=== PATIENT | female | born 1990 | race Caucasian/White ===

== ENCOUNTER 2022-10-26 02:12 | Observation (INO) | payer OTHER, SELFPAY ==
[2022-10-26] VITALS (15 sets, daily range): BP systolic 133–160; BP diastolic 80–111; PULSE 77–103; RESP 16–21; TEMP 36.3–37.1; O2SAT 97–100; BMI 41.6
--- NOTE | ~2022-10-26 | CT_ITS ---
EXAMINATION: CT abdomen pelvis w con DATE: 10/26/2022 03:46 INDICATION: Left lower quadrant abdominal pain, nausea TECHNIQUE: Computed tomography (CT) of the abdomen and pelvis was performed with 100 CC Omnipaque 350 intravenous contrast. Automated exposure control and iterative reconstruction technique were employe d. Exam dose: 1590.58 mGy-cm total exam DLP. COMPARISON: None. FINDINGS: The lung bases are clear. No pericardial or pleural effusion. Heart size is within normal r maya. Small sliding hiatal hernia. No hepatic space-occupying mass lesion. Status post cholecystectomy. No bile duct or pancreatic duct dilatation. No pancreatic mass lesion or calcification. There is patchy enhancement of the spleen, not likely of clinical significance. No splenomegaly is no nessa. Normal morphology of the adrenal glands. No renal mass lesion is noted. There is asymmetric thickening of the wall of the left renal pelvis an d left ureter and left periureteral stranding, suggesting the left pyelonephritis. There is moderate thickness of the urinary bladder wall with mild pericystic fat stranding which may be due to cystitis . No urinary tract calculus is noted. Normal caliber of the abdominal aorta. No intraperitoneal or retroperitoneal or pelvic mass lesion or adenopathy or ascites. The uterus and ovaries are unremarkable. Normal appendix. No bowel obstruction, bowel wall thickening, pneumatosis or intraperitoneal free air . Small fat-containing umbilical hernia. Included skeletal structures are unremarkable. IMPRESSION: Asymmetric soft tissue thickening of left renal pelvis, left ureter, periureteral strand ing and moderate thickness of the bladder wall with mild pericystic stranding, suggesting cystitis an d left pyelonephritis Status post cholecystectomy Nonspecific patchy splenic enhancement, which may be a normal variant. Reviewed, dictated and finalized at [facility]. Reviewed, dictated and finalized at [facility]. ICER IMPRESSION: Asymmetric soft tissue thickening of left renal pelvis, left urete r, periureteral stranding and moderate thickness of the bladder wall with mild pericystic stranding, suggesting cystitis and left pyelonephritis Status post cholecystectomy Nonspecific patchy splenic enhancement, which may be a normal variant.
--- NOTE | 2022-10-26 02:59 | ED.ABDPAIN ---
HPI - Abdominal Pain General Chief Complaint: Abdominal Pain Stated Complaint: abdominal pain Time Seen by Provider: 10/26/22 02:28 History of Present Illness HPI narrative: Patient is a 31-year-old female presenting with abdominal pain. Patient states that for the last 3 days she has had left lower quadrant pain that now radiates into her back. Has been associated with diarrhea and some nausea. She also complains of increased urinary frequency and dysuria. States that earlier today the pain was so bad that she was laying on the ground crying so she called her to bring her in. Patient states that she took Tylenol earlier and her pain is currently improved. She states that she has never had pain like this in the past. She denies fevers, headache, chest pain, shortness of breath, cough, vomiting, rashes, vaginal bleeding or discharge. Related Data Home Medications Medication Instructions Recorded Confirmed Ashley () See Rx Instructions .Route .COMPLEX 10/26/22 10/26/22 venlafaxine 75 mg tablet 75 mg PO DAILY 10/26/22 10/26/22 Allergies Allergy/AdvReac Type Severity Reaction Status Date / Time No Known Allergies Allergy Verified 10/26/22 02:18 Review of Systems Review of Systems: All systems reviewed & are unremarkable except as noted in HPI and below PMFSH Past Medical History Medical History Anxiety and depression Surgical History Surgical History History of cholecystectomy [place] teeth extracted Social History Social History Social History: patient lives in a home with her spouse and child along with 2 dogs does not have a history of any nicotine product or drug abuse. Does can consume alcohol occasionally. History of 1 live . Smoking status: Never smoker Second hand tobacco smoke exposure: No Alcohol intake: current Drinks per week: 1 Substance use: never Lack of Transportation: No Lack of Food: Never True Current Housing: I Have Housing Concerned About Future Housing: No Difficulty Paying Gas/Electric Bills: No Difficulty Paying for Meds: No Currently Unemployed: No Education: High School Diploma/GED Difficulty w/ Childcare or Family Care: No Spiritual care concerns: No Exam Narrative: GENERAL: Well-appearing, well-nourished, and in no acute distress. HEAD: Normocephalic, atraumatic. EYES: PERRLA and EOMI. ENT: Nares clear, no rhinorrhea or epistaxis. Mucous membranes moist. NECK: Supple. CHEST: Clear to auscultation. No respiratory distress. HEART: Regular rate and rhythm. No murmur heard. Normal peripheral pulses. ABDOMEN: Soft, tender to palpation in left lower quadrant, nondistended, normal active bowel sounds. EXTREMITIES: Normal range of motion. No edema. SKIN: Warm, dry, no rash. NEURO: No focal deficits. Alert and oriented x3. PSYCH: Normal mood and affect. Course Course Emergency Course: Patient is a 31-year-old female presenting with abdominal pain. Patient is slightly tachycardic and hypertensive. Exam remarkable for left lower quadrant tenderness. CT abdomen pelvis is concerning for pyelonephritis. UA is consistent with infection. Patient covered with Rocephin and IV fluids are ongoing. Patient admitted to medicine for further management. Vital Signs Vital signs: Vital Signs Temperature 97.3 F L 10/26/22 02:14 Pulse Rate 103 H 10/26/22 02:14 Respiratory Rate 16 10/26/22 02:14 Blood Pressure 151/107 H 10/26/22 02:14 Pulse Oximetry 100 10/26/22 02:14 Oxygen Delivery Room Air 10/26/22 02:14 Temperature 97.9 F 10/27/22 14:00 Pulse Rate 92 10/27/22 14:00 Respiratory Rate 24 H 10/27/22 14:00 Blood Pressure 142/81 H 10/27/22 14:00 Pulse Oximetry 97 10/27/22 14:00 Oxygen Delivery Room Air 10/26/22 20:00 [facility] -
[2022-10-26] MEDS: SODIUM CHLORIDE 0.9% IV 1,000 ML 999 ML IV CONT (03:12)
[2022-10-26 03:14] LABS: Appearance Urine Cloudy (Clear); Basophils Absolute Auto 0.1 K/mm3 (0.0-0.1); Basophils Percent Auto 0.5 % (0.2-1.2); Bilirubin Urine Negative (Negative); Blood Urine 3+ (Negative); Color Urine Yellow (Yellow); Eosinophils Absolute Auto 0.1 K/mm3 (0-0.3); Eosinophils Percent Auto 0.8 % (0-4.4); Glucose Urine UA Negative (Negative); Hematocrit 40.2 % (37.0-47.0); Immature Granulocyte Absolute 0.06 K/mm3 (0.00-0.031); Immature Granulocyte Percent A 0.4 % (0-0.5); Ketones Urine Negative (Negative); Leukocyte Esterase Ur 3+ LEU/UL (Negative); Lymphocytes Absolute Auto 2.42 K/mm3 (0.9-3.2); Lymphocytes Percent Auto 14.6 % (18.3-44.2); Mean Corpuscular HGB Conc 32.3 g/dl (32-36); Mean Corpuscular Hemoglobin 28.1 pg (26-34); Mean Corpuscular Volume 86.8 fl (80-100); Mean Platelet Volume 9.5 fl (7.4-10.4); Monocytes Absolute Auto 1.4 K/mm3 (0.1-0.6); Monocytes Percent Auto 8.3 % (2.6-8.5); Neutrophils Absolute Auto 12.5 K/mm3 (1.3-6.7); Neutrophils Percent Auto 75.4 % (45.5-73.1); Nitrate Urine Positive (Negative); Platelet Count Result 421 k/mm3 (150-375); Protein Urine 2+ mg/dL (Negative); Red Blood Count 4.63 M/mm3 (4.2-5.4); Specific Grav Ur 1.025 (1.001-1.035); Urobilinogen Urine 0.2 mg/dL (<2.0); White Blood Count 16.5 K/mm3 (4.5-10.0)
[2022-10-26 03:23] LABS: Alanine Aminotransferase 28 U/L (6-35); Albumin Level 4.2 g/dL (3.5-5.1); Alkaline Phosphatase 93 U/L (38-126); Anion Gap 9 mmol/L (8-16); Aspartate Amino Transferase 24 U/L (14-36); Bacteria Urine Trace /hpf; Bilirubin,Total 0.2 mg/dL (0.2-1.3); Blood Urea Nitrogen 13 mg/dL (7-17); Calcium 9.7 mg/dL (8.4-10.2); Carbon Dioxide 25 mmol/L (22-30); Chloride 104 mmol/L (98-107); Estimated CRCL calculation 145 ml/min; Estimated Glomerular Filt Rate > 60; Glucose 96 mg/dL (65-110); Lipase 65 U/L (23-300); Mucus Urine Few /lpf; Sodium 138 mmol/L (137-145); Squamous Epithelial Cell Urine Occasional /hpf (Few); WBC Clumps Urine Present /HPF; WBC Urine >75 /hpf
[2022-10-26 03:24] LABS: Add Urine Microscopic? YES
--- NOTE | 2022-10-26 03:35 | PC.NURSE ---
Patient taken to CT via stretcher.
--- NOTE | 2022-10-26 04:42 | PC.NURSE ---
faxed CT report has been received.
[2022-10-26] MEDS: KETOROLAC 15 MG/ML VIAL (*BKC) IV PUSH (05:24)
--- NOTE | 2022-10-26 06:36 | ADMGEN ---
This patient, Susan Arias Bojorquez, was admitted to [facility] Surg Room 320-01 at 0621. Patient/family oriented to hospital policies and general routines including ID bracelet, bed and alarms, visiting hours, pain management, procedures, bathroom and other care routines, personal items, smoking policy, room service/diet, and visiting hours. Information on how to activate the Rapid Response Team has been discussed. Patient/Family are encouraged to report perceived risks to care and to ask questions if they do not understand what they are told or what they should do.
[2022-10-26] MEDS: KETOROLAC 30 MG/ML VIAL (*BKC) IV PUSH (10:36)
--- NOTE | 2022-10-26 14:46 | PM.IMHP ---
H&P: HPI History of Present Illness Date/Time: 10/26/22 14:46 Chief Complaint: Dysuria, flank pain Narrative: 31-year-old with a history of anxiety depression presents to the ER due to worsening left flank pain associated dysuria. Patient states that she had noticed some cramping on her left flank starting on 10/23/2022 and also was having urinary frequency. Patient noticed that she was starting to urinate less than last throughout the day. She denies fever, right flank pain, and blood in her urine. Patient does have a history of UTIs in stated that when she had 1st started getting symptoms she had started using vaginal cleansing wipes, cranberry juice, azo, increased water intake, and Tylenol with no relief. in the early hours of 10/26/2022 patient stated that she had had severe cramping in her flank and that is what brought her to the ER. patient's urine revealed 11-20 rbc's, 3+ leukocyte esterase, positive nitrate, and greater than 75 white blood cells. Patient denies fever. Vital signs revealed tachycardia. Patient was admitted into observation under the diagnosis of pyelonephritis. Review of Systems Review of Systems: All systems reviewed & are unremarkable except as noted in HPI and below PMFSH Past Medical History Medical History Anxiety and depression Surgical History Surgical History History of cholecystectomy [place] teeth extracted Social History Social History Social History: patient lives in a home with her spouse and child along with 2 dogs does not have a history of any nicotine product or drug abuse. Does can consume alcohol occasionally. History of 1 live . Smoking status: Never smoker Second hand tobacco smoke exposure: No Alcohol intake: current Drinks per week: 1 Substance use: never Lack of Transportation: No Lack of Food: Never True Current Housing: I Have Housing Concerned About Future Housing: No Difficulty Paying Gas/Electric Bills: No Difficulty Paying for Meds: No Currently Unemployed: No Education: High School Diploma/GED Difficulty w/ Childcare or Family Care: No Spiritual care concerns: No Meds Home Medications and Allergies Home Medications Medication Instructions Recorded Confirmed Type [place] (28) See Rx Instructions .Route .COMPLEX 10/26/22 10/26/22 History venlafaxine 75 mg tablet 75 mg PO DAILY 10/26/22 10/26/22 History Allergies Allergy/AdvReac Type Severity Reaction Status Date / Time No Known Allergies Allergy Verified 10/26/22 02:18 Vital Signs Vital Signs - 24 hr 10/26/22 02:14 10/26/22 02:27 10/26/22 02:32 Temperature 97.3 F L Pulse Rate 103 H Respiratory Rate 16 Blood Pressure 151/107 H 160/105 H 156/99 H Pulse Oximetry 100 97 97 Oxygen Delivery Room Air 10/26/22 03:19 10/26/22 03:31 10/26/22 03:54 Temperature Pulse Rate Respiratory Rate Blood Pressure 134/98 H Pulse Oximetry 98 100 100 Oxygen Delivery 10/26/22 04:20 10/26/22 05:24 10/26/22 05:25 Temperature Pulse Rate Respiratory Rate 17 Blood Pressure 156/111 H Pulse Oximetry 100 100 100 Oxygen Delivery 10/26/22 05:30 10/26/22 05:45 10/26/22 06:00 Temperature 98.7 F Pulse Rate 89 Respiratory Rate 17 Blood Pressure Pulse Oximetry 100 100 100 Oxygen Delivery 10/26/22 06:21 10/26/22 10:36 10/26/22 14:00 Temperature 97.5 F L 97.3 F L Pulse Rate 88 101 H Respiratory Rate 21 H 20 Blood Pressure 135/84 133/80 Pulse Oximetry 100 97 Oxygen Delivery Room Air Exam Narrative: GENERAL: Comfortable, no acute distress HENMT: moist mucous membranes EYES: EOM intact b/l NECK: no lymphadenopathy RESPIRATORY: clear to auscultation CARDIO: RRR BACK: left CVA tenderness GI: soft, nontender, b
[2022-10-26] MEDS: ACETAMINOPHEN 325 MG TABLET 650 MG PO ×2 (18:02→23:08)
[2022-10-26] MEDS: VENLAFAXINE HCL XR 75 MG CAP.ER.24H PO (23:36)
[2022-10-27 06:00] VITALS: BP 148/86; PULSE 81; RESP 16; TEMP 36.5; O2SAT 98
[2022-10-27] MEDS: KETOROLAC 30 MG/ML VIAL (*BKC) IV PUSH (06:19)
[2022-10-27 07:30] LABS: Estimated CRCL calculation 129 ml/min; Estimated Glomerular Filt Rate > 60
[2022-10-27 09:26] LABS: Anion Gap 9 mmol/L (8-16); Blood Urea Nitrogen 8 mg/dL (7-17); Calcium 8.4 mg/dL (8.4-10.2); Carbon Dioxide 26 mmol/L (22-30); Chloride 107 mmol/L (98-107); Estimated CRCL calculation 129 ml/min; Estimated Glomerular Filt Rate > 60; Glucose 92 mg/dL (65-110); Potassium 3.9 mmol/L (3.4-5.0); Sodium 142 mmol/L (137-145)
[2022-10-27 10:01] LABS: Hematocrit 36.5 % (37.0-47.0); Hemoglobin 11.8 g/dL (12.0-15.0); Mean Corpuscular HGB Conc 32.3 g/dl (32-36); Mean Corpuscular Hemoglobin 27.5 pg (26-34); Mean Corpuscular Volume 85.1 fl (80-100); Mean Platelet Volume 9.5 fl (7.4-10.4); Platelet Count Result 358 k/mm3 (150-375); Red Blood Count 4.29 M/mm3 (4.2-5.4); Red Cell Distribution Width 13.2 % (11.5-14.5); White Blood Count 9.8 K/mm3 (4.5-10.0)
[2022-10-27 14:00] VITALS: BP 142/81; PULSE 92; RESP 24; TEMP 36.6; O2SAT 97
--- NOTE | 2022-10-27 14:28 | PM.DS ---
DS: Admitting Diagnosis Discharge Date 10/27/2022 Admitting Diagnosis pyelonephritis DS: Discharge Diagnosis Discharge Diagnosis (1) Pyelonephritis: Code(s): N12 - Tubulo-interstitial nephritis, not specified as acute or chronic Status: Acute DS: Summary Hospital Course Reason for hospitalization: pyelonephritis Hospital Course: 31-year-old female presented to the ED on 10/26/2022 with left-sided abdominal/ flank pain. Patient stated that she had noticed this pain on 10/23/2022 along with urinary frequency and incomplete bladder emptying. Patient had tried OTC cleansing wipes, cranberry juice, azo, increase water intake and Tylenol without any symptom relief. Patient decided to go to the ER once the left flank pain had become too severe. patient's urine revealed 11-20 rbc's, 3+ leukocyte esterase, positive nitrate, and greater than 75 white blood cells. Patient had not experienced any fever. Vital signs did not reveal any tachycardia or hypotension. Patient was started on Zosyn. Urine culture pending and blood culture no growth to date. Patient will be contacted if necessary pending results of culture. Patient was given Toradol for flank pain. Once patient was started on antibiotics urinary symptoms such is dysuria, frequency, and incomplete emptying resolved. Patient is feeling much better today and agrees with discharged. Status at Discharge Functional status at discharge: independent ambulation Overall status at discharge: patient is progressing back to baseline Time Spent with Patient Time attestation: Total time spent providing and/or coordinating discharge services: Exam Narrative: GENERAL: Comfortable, no acute distress HENMT: moist mucous membranes EYES: EOM intact b/l NECK: no lymphadenopathy RESPIRATORY: clear to auscultation CARDIO: RRR BACK: left CVA tenderness GI: soft, nontender, bowel sounds present SKIN: no rashes EXTREMITIES: no edema, redness or tenderness DS: Data Data Completed and Pending Labs on day of discharge: Labs from last 24 hours 10/27/22 10/27/22 10/27/22 06:53 06:53 06:53 WBC 9.8 RBC 4.29 Hgb 11.8 L Hct 36.5 L MCV 85.1 MCH 27.5 MCHC 32.3 RDW 13.2 Plt Count 358 MPV 9.5 Sodium 142 Potassium 3.9 Chloride 107 Carbon Dioxide 26 Anion Gap 9 BUN 8 D Creatinine 0.80 0.80 Estim Creat Clear Calc 129 129 Estimated GFR > 60 > 60 Glucose 92 Calcium 8.4 Preliminary micro results at discharge 10/26/22 05:40 Blood Culture - Preliminary Blood 10/26/22 05:40 Blood Culture - Preliminary Blood Discharge Plan Discharge Attending physician on discharge: Mathew Dominguez Discharging Clinician: Debra Alexander Patient Disposition: Home, Self-Care Activity: as tolerated Diet: as tolerated Discharge Instructions: Discharge disposition: Take medications as prescribed Caution taking antibiotic while on control. Advise using additional contraception throughout antibiotic course. Eat well-balanced meals and stay hydrated Advise use of cotton underwear and unscented products to be used on or near vaginal area Avoid social areas, you wear a mask when in social settings Encouraged to continue with yearly vaccinations Return to the emergency department if he developed sudden shortness of breath, chest pain, nausea, vomiting, upset stomach or intractable diarrhea Return to the emergency department if you develop fever greater than 100.4 Follow-up with the primary care physician within 1-2 weeks Thank you for [facility] for your healthcare needs Patient Instructions: Antibiotic Form Patient Language: [place] Stand Alone Forms: General Discharge Information Follow-up/Referrals: Jean,MD Tracey [Primary Care Provider] - Discharge Medications: New levofloxacin 750 mg tablet 750 mg PO DAILY Qty: 5 0RF Continued angy
--- NOTE | 2022-11-03 10:30 | PC.NURSE ---
Blood cx are negative. Urine cx results sent to JAQUAN Mata
--- NOTE | 2022-11-03 11:24 | PC.NURSE ---
Final for urine cx is E. coli. Patient dc on Levofloxacin which has intermediate coverage. Spoke with JAQUAN Mata. She ordered Cefdinir 300mg po every 12 hours for 5 days. Script called into [facility] in [place]. PA called pt with new order.
== END 2022-10-27 15:40 | disposition home or self-care (01) ==
LOC: ANHED 06:18 → ANH3MEDSUR 17:05
PROVIDERS: Internal Medicine Critical Care Medicine; Admitting Provider Internal Medicine; Emergency Provider Emergency Medicine; PCP Family Medicine; Visit Provider Internal Medicine
DX: N12 Tubulo-interstitial nephritis, not specified as acute or chronic (principal); N39.0 Urinary tract infection, site not specified; B96.29 Other Escherichia coli [E. coli] as the cause of diseases classified elsewhere; F41.9 Anxiety disorder, unspecified; F32.A Depression, unspecified; F10.90 Alcohol use, unspecified, uncomplicated; Z90.49 Acquired absence of other specified parts of digestive tract; Z79.899 Other long term (current) drug therapy
CPT/HCPCS: 36415; 74177; 80048; 80053; 81001; 81025; 82565; 83690; 85025; 85027; 87040; 87077; 87086; 87186; 96361; 96365; 96366; 96367; 96372; 96375; 96376; 99285; A9270; G0378; J0696; J1885; J2543; J3370; J7030; Q9967

== ENCOUNTER 2024-01-16 00:04 | Emergency (ER) | payer OTHER, SELFPAY ==
[2024-01-16] VITALS (14 sets, daily range): BP systolic 104–159; BP diastolic 72–115; PULSE 95–140; RESP 15–45; TEMP 36.6–37.6; O2SAT 92–100
--- NOTE | ~2024-01-16 | XR_ITS ---
EXAMINATION: XR chest 1V portable DATE: 01/16/2024 09:19 INDICATION: Sepsis TECHNIQUE: frontal view of the chest was obtained. COMPARISON: None FINDINGS: The lungs are clear with no focal airspace opacities, pulmonary edema, pleural effusion or pneumothor ax. The cardiomediastinal silhouette is normal. Visualized bones and soft tissues are unremarkable. IMPRESSION: 1. No acute cardiopulmonary disease. Reviewed, dictated and finalized at [facility]. ING MACHINE OPERATOR
--- NOTE | ~2024-01-16 | CT_ITS ---
EXAMINATION: CT brain wo con, CT soft tissue neck w con DATE: 01/16/2024 09:10 INDICATION: Mastoiditis with right ear pressure and right neck pain. TECHNIQUE: 1. Computed tomography (CT) of the head was performed without intravenous contrast. Sagittal and juan nal reconstructions were performed. The mA was adjusted according to patient size. Iterative reconstr uction technique was employed. The dose-length product was 605.33 (accession [id number]), 546.91 (accession [id number]) mGy-cm. 2. CT of the soft tissue neck was obtained with 100 mL Omnipaque-350 intravenous contrast. Sagittal a nd coronal reconstructions were performed. Automated exposure control and iterative reconstruction te chnique were employed. The dose-length product was 546.91 mGy-cm. COMPARISON: None FINDINGS: Head: No acute intracranial hemorrhage, acute infarction or abnormal extra axial fluid collection. Ventricl es are normal and symmetric. No mass/mass effect. The orbits, paranasal sinuses and left mastoid air cells are normal. Right otomastoiditis effusion with fluid filling the majority of the right mastoid air cells as well as in the dependent aspect of the middle ear cavity including along the ossicular c bj. No evident osseous erosion/dehiscence. neck: Submandibular and parotid glands are symmetric. Thyroid gland is unremarkable. There are relatively s ymmetric scattered normal-sized lymph nodes in the neck, no lymphadenopathy. No masses identified. T he vasculature is patent and normal in caliber. Airway is unremarkable. Superior mediastinum is unrem arkable. Lung apices are normal. Cervical spine is unremarkable. IMPRESSION: 1. Right otomastoiditis effusion. No evident osseous erosions/dehiscence. 2. Normal brain. No acute intracranial process. Reviewed, dictated and finalized at location [facility]. STRIAL TRAINER IMPRESSION: 1. Right otomastoiditis effusion. No evident osseous erosions/dehiscence. 2. Normal brain. No acute intracranial process.
--- NOTE | 2024-01-16 07:03 | ECG_ITS ---
Measurements Intervals [place] Rate: 131 P: 55 MA: 120 QRS: 28 QRSD: 94 T: 16 QT: 333 QTc: 493 Interpretive Statements SINUS TACHYCARDIA NONSPECIFIC T-WAVE ABNORMALITY BORDERLINE ECG NO PREVIOUS ECG AVAILABLE FOR COMPARISON Electronically Signed On 01-16-2024 8:35:36 ASSISTANT PRESS OPERATOR OFFSET by Khai Infante M.D.
--- NOTE | 2024-01-16 07:53 | ED.EAR ---
HPI - Ear Problem General Chief complaint: Ear Stated complaint: Pressure in right ear, throbbing Time Seen by Provider: 01/16/24 07:05 History of Present Illness HPI Narrative: Patient is a 33-year-old female who presents to the emergency department this morning complaining of right ear pain for the past few days. Patient states that she had some antibiotics left over at home, some old your drops which she used and believes that may have worsened her ear pain. Patient admits that she has had some ear discharges well and is complaining of pain around her entire ear which radiates to the area behind her ear and down her right neck. Denies any fevers or chills at home. Patient is currently denying any nausea or vomiting, any abdominal pain, dysuria, hematuria, constipation, diarrhea, melena, hematochezia, chest pain shortness of breath. There are no other modifying, alleviating, or precipitating factors at this time. Related Data Home Medications Medication Instructions Recorded Confirmed Ashley (28) See Rx Instructions .Route .COMPLEX 10/26/22 10/26/22 venlafaxine 75 mg tablet 75 mg PO DAILY 10/26/22 10/26/22 Allergies Allergy/AdvReac Type Severity Reaction Status Date / Time No Known Allergies Allergy Verified 01/16/24 10:26 Review of Systems Review of Systems: All systems are reviewed and are negative unless stated otherwise in the HPI. [facility] Past Medical History Medical History Anxiety and depression Surgical History Surgical History History of cholecystectomy [place] teeth extracted Social History Social History Social History: patient lives in a home with her spouse and child along with 2 dogs does not have a history of any nicotine product or drug abuse. Does can consume alcohol occasionally. History of 1 live . Smoking status: Never smoker Second hand tobacco smoke exposure: No Alcohol intake: current Drinks per week: 1 Substance use: never Lack of Transportation: No Lack of Food: Never True Current Housing: I Have Housing Concerned About Future Housing: No Difficulty Paying Gas/Electric Bills: No Difficulty Paying for Meds: No Currently Unemployed: No Education: High School Diploma/GED Difficulty w/ Childcare or Family Care: No Spiritual care concerns: No Exam Narrative: General: Alert, awake, afebrile, in moderate distress. HEENT: PERRL, no rhinorrhea, no post nasal drip, oropharynx clear, moderate swelling to the right ear canal, unable to visualize the right tympanic membrane, dried crusty drainage noted within the ear canal, mild pain with pinna manipulation. Neck: Trachea midline, no JVD, no lymphadenopathy. Cardiovascular: Tachycardic with regular rhythm, no murmurs, rubs or gallops, no peripheral edema. Respiratory: Clear to auscultation bilaterally, no tachypnea, no wheezing, no rhonchi, no rubs, no respiratory distress. Abdomen: Soft, nontender, nondistended, no rebound, no guarding, no peritoneal signs. Musculoskeletal: No joint swelling or deformity, normal muscle tone. Skin: No rashes or petechia, no signs of infection. Psychiatric: Alert and oriented, normal behavior and judgment for situation. Neurological: Alert and oriented to person, place, and time. Follows all commands. No focal deficits, speech is clear and fluent. Course Vital Signs Vital signs: Vital Signs Temperature 98.2 F 01/16/24 00:07 Pulse Rate 106 H 01/16/24 00:07 Respiratory Rate 16 01/16/24 00:07 Blood Pressure 159/100 H 01/16/24 00:07 Pulse Oximetry 100 01/16/24 00:07 Oxygen Delivery Room Air 01/16/24 00:07 Temperature 98.1 F 01/16/24 21:00 Pulse Rate 95 01/16/24 21:00 Respiratory Rate 15 01/16/24 21:00 Blood Pressure 134/82 01/16/24 21:00 Pulse Oximetry 100
[2024-01-16] MEDS: KETOROLAC 15 MG/ML VIAL (*BKC) IV PUSH ×2 (08:19→16:47)
[2024-01-16] MEDS: SODIUM CHLORIDE 0.9% IV 1,000 ML 999 ML IV CONT ×2 (08:20→12:35)
[2024-01-16 08:25] LABS: Basophils Absolute Auto 0.1 K/mm3 (0.0-0.1); Basophils Percent Auto 0.3 % (0.2-1.2); Hemoglobin 13.8 g/dL (12.0-15.0); Immature Granulocyte Absolute 0.14 K/mm3 (0.00-0.031); Immature Granulocyte Percent A 0.5 % (0-0.5); Lymphocytes Absolute Auto 1.36 K/mm3 (0.9-3.2); Lymphocytes Percent Auto 5.2 % (18.3-44.2); Mean Corpuscular HGB Conc 32.1 g/dl (32-36); Mean Corpuscular Hemoglobin 27.8 pg (26-34); Mean Corpuscular Volume 86.5 fl (80-100); Mean Platelet Volume 9.5 fl (7.4-10.4); Monocytes Absolute Auto 2.1 K/mm3 (0.1-0.6); Monocytes Percent Auto 7.8 % (2.6-8.5); Neutrophils Absolute Auto 22.7 K/mm3 (1.3-6.7); Neutrophils Percent Auto 86.2 % (45.5-73.1); Platelet Count Result 388 k/mm3 (150-375); Red Blood Count 4.97 M/mm3 (4.2-5.4); Red Cell Distribution Width 13.8 % (11.5-14.5); White Blood Count 26.3 K/mm3 (4.5-10.0)
[2024-01-16 08:36] LABS: Lactic Acid Reflex 1.8 mmol/L (0.7-2.0)
[2024-01-16 08:38] LABS: Alanine Aminotransferase 43 U/L (6-35); Albumin Level 4.8 g/dL (3.5-5.1); Alkaline Phosphatase 115 U/L (38-126); Anion Gap 10 mmol/L (8-16); Aspartate Amino Transferase 30 U/L (14-36); Bilirubin,Total 0.6 mg/dL (0.2-1.3); Blood Urea Nitrogen 6 mg/dL (7-17); Calcium 9.6 mg/dL (8.4-10.2); Carbon Dioxide 24 mmol/L (22-30); Chloride 102 mmol/L (98-107); Estimated CRCL calculation 170 ml/min; Estimated Glomerular Filt Rate > 60; Glucose 127 mg/dL (65-110); Potassium 3.9 mmol/L (3.4-5.0); Sodium 136 mmol/L (137-145)
[2024-01-16 08:39] LABS: SPREG INTERNAL CONTROL Positive; Serum Qual hCG Negative
--- NOTE | 2024-01-16 10:08 | PC.NURSE ---
[facility] has pt on wait list only time critical pts getting accepted recommend that pt go elsewhere
[2024-01-16] MEDS: PIPERACILLIN/TAZ 4.5G/NS 100ML 4.5 GM/100 ML BAG IVPB ×2 (10:12→18:20)
[2024-01-16 10:19] LABS: Appearance Urine Clear (Clear); Bilirubin Urine Negative (Negative); Blood Urine Negative (Negative); Color Urine Yellow (Yellow); Glucose Urine UA Negative (Negative); Ketones Urine Negative (Negative); Leukocyte Esterase Ur Negative LEU/UL (Negative); Nitrate Urine Negative (Negative); Protein Urine Negative (Negative); Specific Grav Ur 1.023 (1.001-1.035); Urobilinogen Urine 0.2 mg/dL (<2.0)
[2024-01-16 10:28] LABS: Add Urine Microscopic? NO
[2024-01-16] MEDS: VANCOMYCIN 1,250 MG/NS 250 ML 1,250 MG/250 ML BAG 166.67 MG IVPB ×2 (11:00→12:35)
[2024-01-16] MEDS: ONDANSETRON INJ 4 MG/2 ML VIAL IV PUSH (11:16)
[2024-01-16] MEDS: MORPHINE SULFATE (*CRX) 4 MG/ML INJ IV PUSH (11:16)
--- NOTE | 2024-01-16 19:22 | PC.NURSE ---
Radha at [facility] center dary solo pt has bed at [facility]. Pt accepted by Dr. Erickson, bed 2557-A. Number for report [phone]
== END 2024-01-16 22:19 | disposition short-term general hospital (02) ==
PROVIDERS: Emergency Provider Emergency Medicine; PCP Family Medicine
DX: H70.001 Acute mastoiditis without complications, right ear (principal); A41.9 Sepsis, unspecified organism; D72.829 Elevated white blood cell count, unspecified; F41.9 Anxiety disorder, unspecified; F32.A Depression, unspecified; Z90.49 Acquired absence of other specified parts of digestive tract; R00.0 Tachycardia, unspecified; R94.31 Abnormal electrocardiogram [ECG] [EKG]
CPT/HCPCS: 36415; 70450; 70491; 71045; 80053; 81003; 81025; 83605; 84703; 85025; 87040; 93005; 96361; 96365; 96366; 96367; 96375; 96376; 99285; J1885; J2270; J2405; J2543; J3370; J7030; Q9967